=== PATIENT | male | born 1970 | race Caucasian/White ===

== ENCOUNTER → 2017-07-09 | Outpatient (CLI) | payer MEDICARE ==
[~2017-07-09] MED LIST: OMNIPAQUE 350 MG/ML, 100ML BOTTLE ONE
== END | disposition home or self-care (01) ==
LOC: CFH 08:14
PROVIDERS: ATTEND Family Medicine
DX: N28.1 Cyst of kidney, acquired (principal); R94.5 Abnormal results of liver function studies; R31.9 Hematuria, unspecified; K76.89 Other specified diseases of liver
CPT/HCPCS: 74178; Q9967